=== PATIENT | female | born 1965 | race Two or more races ===

== ENCOUNTER 2017-10-15 14:03 | Outpatient (CLI) | payer OTHER | END 2017-10-15 14:13 | disposition home or self-care (01) | LOC: RAD 501 14:03 | DX: M79.674 Pain in right toe(s) (principal) ==

== ENCOUNTER 2021-06-20 11:40 | Emergency (ER) | payer OTHER ==
[~2021-06-20] VITALS: Ht 167.6 cm; Wt 79.4 kg
[2021-06-20] MEDS ORDERED: SYNTHROID100 MCG (12:10)
[2021-06-20] MEDS ORDERED: LEXAPRO20 MG PO (12:10)
[2021-06-20] MEDS ORDERED: KETO10TA2 PO (15:56)
== END 2021-06-20 16:18 | disposition home or self-care (01) ==
LOC: ER 11:40
DX: S89.92XA Unspecified injury of left lower leg, initial encounter (principal); S99.922A Unspecified injury of left foot, initial encounter; W22.09XA Striking against other stationary object, initial encounter; Y92.59 Other trade areas as the place of occurrence of the external cause

== ENCOUNTER 2023-09-25 09:52 | Inpatient (IN) | payer OTHER ==
[~2023-09-25] VITALS: Ht 167.6 cm; Wt 68.0 kg
[~2023-09-25 09:52] MED LIST: KETO10TA2 PO; LEXAPRO20 MG PO; SYNTHROID100 MCG
[2023-09-25] MEDS ORDERED: CRESTOR5 MG PO (10:50)
[2023-09-25 12:32] LABS: HEMATOCRIT 41.5 % (36.0-45.00); HEMOGLOBIN 14.1 g/dL (12.0-15.00); MEAN CELL VOLUME 91.8 fL (80.00-100.00); MEAN CORPUSCULAR HEMOGLOBIN 31.2 pg (27.00-32.0); PH,URINE 6.5 (5.0-8.0); PLATELET COUNT 303 K/uL (150-450); RED BLOOD COUNT 4.52 M/uL (4.00-6.00); RED CELL DISTRIBUTION WIDTH 13.3 % (11.5-14.5); URINE APPEARANCE Turbid; URINE BILIRRUBIN Negative (NEGATIVE); URINE BLOOD Trace; URINE COLOR Dark Yellow; URINE GLUCOSE Negative (NEGATIVE); URINE LEUKOCYTE Negative; URINE NITRATE Negative; URINE PROTEIN Trace (NEGATIVE)
[2023-09-25 12:36] LABS: URINE BACTERIA 51.6 uL (0.0-1933); URINE RBC 21.9 uL (0.0-20.8)
[2023-09-25 12:41] LABS: URINE WBC 1.3 uL (0.0-23.2)
[2023-09-25 13:22] LABS: ALBUMIN 4.1 gm/dL (3.4-5.0); BILIRUBIN TOTAL 0.65 mg/dL (0.3-1.2); CALCIUM 9.8 mg/dL (8.5-10.1); CREATININE SERUM 0.7 mg/dL (0.55-1.02); GFR 86.25; GLOBULINA 3.5 G/DL (2.4-3.5); POTASSIUM 4.52 mEq/L (3.5-5.1); TOTAL PROTEIN 7.6 gm/dL (6.4-8.2)
[2023-09-25 13:37] LABS: C-REACTIVE PROTEIN 1.92 MG/DL (0.00-0.29)
[2023-09-25 16:22] LABS: INR 1.03; PROTHROMBIN TIME 10.8 SECONDS (9.0-11.5)
[2023-09-26 06:41] LABS: HEMATOCRIT 33.7 % (36.0-45.00); MEAN CELL VOLUME 91.2 fL (80.00-100.00); MEAN CORPUSCULAR HGB CONC 34.2 g/dl (32.0-36.0); PLATELET COUNT 257 K/uL (150-450); RED BLOOD COUNT 3.69 M/uL (4.00-6.00); RED CELL DISTRIBUTION WIDTH 13.2 % (11.5-14.5)
[2023-09-26 06:53] LABS: INR 1.09; PARTIAL THROMBOPLASTIN TIME 27.7 SECONDS (22.0-34.0); PROTHROMBIN TIME 11.4 SECONDS (9.0-11.5)
[2023-09-26 06:54] LABS: CALCIUM 8.4 mg/dL (8.5-10.1); CREATININE SERUM 0.63 mg/dL (0.55-1.02); GFR 97.4; POTASSIUM 4.1 mEq/L (3.5-5.1)
[2023-09-26 07:30] LABS: HEMOGLOBIN 11.5 g/dL (12.0-15.00); MEAN CORPUSCULAR HEMOGLOBIN 31.1 pg (27.00-32.0)
== END 2023-09-27 11:20 | disposition home or self-care (01) | DRG 399 ==
LOC: ER 09:53 → MEDJ 16:59
PROVIDERS: General Practice; Internal Medicine; Surgery; ADMIT Specialist; ATTEND Specialist
PROC: BW21YZZ Computerized Tomography (CT Scan) of Abdomen and Pelvis using Other Contrast (ICD-10-PCS; 2023-09-25)
PROC: 0DTJ4ZZ Resection of Appendix, Percutaneous Endoscopic Approach (ICD-10-PCS; principal; 2023-09-25 22:15)
DX: K35.890 Other acute appendicitis without perforation or gangrene (principal)

== ENCOUNTER 2023-12-13 10:57 | Emergency (ER) | payer OTHER ==
[~2023-12-13] VITALS: Ht 167.6 cm; Wt 68.0 kg
[~2023-12-13 10:57] MED LIST changes: +CRESTOR5 MG PO
[2023-12-13] MEDS ORDERED: ONDANSETRON 4 MG TAB.RAPDIS PO STA (11:41)
[2023-12-13] MEDS ORDERED: 0.9 % SODIUM CHLORIDE 1,000 ML IV STA (11:41)
[2023-12-13 12:20] LABS: HEMATOCRIT 41.7 % (36.0-45.00); HEMOGLOBIN 14.6 g/dL (12.0-15.00); MEAN CELL VOLUME 90.9 fL (80.00-100.00); MEAN CORPUSCULAR HEMOGLOBIN 31.8 pg (27.00-32.0); PH,URINE 5.5 (5.0-8.0); PLATELET COUNT 260 K/uL (150-450); RED BLOOD COUNT 4.59 M/uL (4.00-6.00); RED CELL DISTRIBUTION WIDTH 14.1 % (11.5-14.5); URINE APPEARANCE Cloudy; URINE BILIRRUBIN Negative (NEGATIVE); URINE BLOOD Negative; URINE COLOR Yellow; URINE GLUCOSE Negative (NEGATIVE); URINE LEUKOCYTE Moderate; URINE NITRATE Negative; URINE PROTEIN Negative (NEGATIVE)
[2023-12-13 12:21] LABS: URINE BACTERIA 831.4 uL (0.0-1933); URINE EPITHELIAL CELLS 58.1 uL (0.0-38.8); URINE RBC 5.8 uL (0.0-20.8); URINE WBC 174.9 uL (0.0-23.2)
[2023-12-13 12:42] LABS: ALBUMIN 4.4 gm/dL (3.4-5.0); BILIRUBIN TOTAL 0.87 mg/dL (0.3-1.2); CALCIUM 9.7 mg/dL (8.5-10.1); CREATININE SERUM 0.76 mg/dL (0.55-1.02); GFR 78.44; GLOBULINA 4.1 G/DL (2.4-3.5); POTASSIUM 4.11 mEq/L (3.5-5.1); TOTAL PROTEIN 8.5 gm/dL (6.4-8.2)
[2023-12-13] MEDS ORDERED: CEFTRIAXONE SODIUM 1,000 MG VIAL IM STA (13:15)
[2023-12-13] MEDS ORDERED: ZOFRAN8 MG PO (17:38)
[2023-12-13] MEDS ORDERED: MIRALAX17 GM PO (17:41)
== END 2023-12-13 17:50 | disposition home or self-care (01) ==
LOC: ER 10:57
PROVIDERS: General Practice
DX: K59.00 Constipation, unspecified (principal); R11.0 Nausea; I10 Essential (primary) hypertension; E03.8 Other specified hypothyroidism
CPT/HCPCS: 36415; 74177; 74240; Q9965